=== PATIENT | female | born 1935 | race Two or more races ===

== ENCOUNTER 2017-06-29 20:44 | Emergency (ER) | payer MEDICAID ==
[~2017-06-29] VITALS: Ht 167.6 cm; Wt 63.5 kg
--- NOTE | 2017-06-29 21:04 | Emergency Room Report ---
History of Present Illness General Chief Complaint: Altered Level of Consciousness Source: Patient, Medical Record, EMS Present Illness HPI She was brought in for altered mental status. She's from a snf facility. She's recently discharged from [facility] for pneumonia. Initially presented to [facility] and was intubated for resp distress ( could not tell CHF or pneumonia). Treated empirically with cefepime and levofloxacin. Had stress test which was neg for ischemia but + for possible cardiomyopathy and pulm fibrosis. She had altered mentation during the prior admission. Etiology unclear. Accu-Chek in the field today was 124. The patient denies any pain. She says that she vomits sometimes appeared she is unclear about other questions. (In past it was recorded she only speaks Farsi.) H/O CHF, osteoporosis, COPD, HTN, dementia, blind in R eye Allergies: Coded Allergies: No Known Allergies (Unverified , 06/29/17) Patient History Limited by: language barrier, medical condition Past Medical History: see triage record, old chart reviewed Social History Narrative snf - has friends but no family members Now: No Reviewed Nursing Documentation: PMH: Agreed, PSxH: Agreed Nursing Documentation-PMH Past Medical History: No History, Except For Hx Cardiac Problems: Yes - CHF, CAD Hx COPD: No - PNA Review of Systems All Other Systems: limited Physical Exam Vital Signs Date Time Temp Pulse Resp B/P (MAP) Pulse Ox O2 Delivery O2 Flow Rate FiO2 06/29/17 20:38 98.4 76 18 129/90 98 Nasal Cannula 4.0 Sp02 EP Interpretation: reviewed, normal General Appearance: well appearing, no apparent distress, GCS 15, Chronically Ill Head: normocephalic Eyes: right eye other - enucleation ENT: moist mucus membranes Neck: supple Respiratory: no respiratory distress, no retraction, decreased breath sounds, crackles, rhonchi Cardiovascular #1: regular rate, rhythm Cardiovascular #2: 2+ radial (R) Gastrointestinal: normal inspection, normal bowel sounds, non tender, no mass, non-distended Musculoskeletal: back normal, gait/station normal, normal range of motion Neurologic: alert, responsive, sensory intact, motor weakness - bilat LE Psychiatric: depressed affect Skin: warm/dry, other - sallo, ecchymoses L upper arm Medical Decision Making Diagnostic Impression: Primary Impression: Bilateral pleural effusion Additional Impressions: Altered level of consciousness UTI (urinary tract infection) Qualified Codes: N30.00 - Acute cystitis without hematuria Dehydration CO2 retention ER Course Patient presents with altered level of consciousness a recent history of pneumonia. Differential includes stroke, electrolyte abnormality, infection from occult source, pneumonia partially treated amongst others. We need to exclude cardiac cause. EKG, chest x-ray, CT and labs are going to be obtained. The patient will receive gentle IV hydration. CT head shows no evidence of acute cortical stroke mass or edema no bleed. Periventricular small vessel ischemic changes and atrophy. Thickened falx which is likely related to calcification. EKG as well. Chest x-ray reveals significant bilateral pleural effusions and atelectasis versus infiltrate on the right-hand side. Labs are significant for normal white count although this is higher than a [facility]. Other labs significant for elevated carbon dioxide and BUN. These suggest chronic CO2 retention and also dehydration. She also has pyuria. Her mentation improved in the ED. It is uncertain what contributed to this. ( She is a complicated patient.) Based on the x-ray the patient was treated empirically with antibiotics again. Rancorous cough with improved mentation.. In addition to that she received breathing treatments here. She also received gentle hydration. Clinically she was improved but because the x-ray and labs she was deemed in needed to be admitted for observation. The patient was discussed with Dr. Sharma. The patient was transferred to [place] in improved condition but serious. Patient needs echo and continued antibiotics. A neurologic consultation is also needed. Laboratory Tests Test 06/29/17 21:10 06/29/17 21:33 06/29/17 22:12 White Blood Count 8.9 K/UL (4.8-10.8) Red Blood Count 3.42 M/UL (4.20-5.40) L Hemoglobin 11.3 G/DL (12.0-16.0) L Hematocrit 33.9 % (37.0-47.0) L Mean Corpuscular Volume 99 FL (80-99) Mean Corpuscular Hemoglobin 32.9 PG (27.0-31.0) H Mean Corpuscular Hemoglobin Concent 33.2 G/DL (32.0-36.0) Red Cell Distribution Width 12.8 % (11.6-14.8) Platelet Count 225 K/UL (150-450) Mean Platelet Volume 6.3 FL (6.5-10.1) L Neutrophils (%) (Auto) 70.0 % (45.0-75.0) Lymphocytes (%) (Auto) 17.8 % (20.0-45.0) L Monocytes (%) (Auto) 8.9 % (1.0-10.0) Eosinophils (%) (Auto) 2.6 % (0.0-3.0) Basophils (%) (Auto) 0.7 % (0.0-2.0) Prothrombin Time 9.8 SEC (9.30-11.50) Prothrombin Time INR 0.9 (0.9-1.1) PTT 22 SEC (23-33) L Sodium Level 144 mEQ/L (135-145) Potassium Level 4.1 mEQ/L (3.4-4.9) Chloride Level 99 mEQ/L (98-107) Carbon Dioxide Level 39 mEQ/L (20-30) H Anion Gap 6 (5-15) Blood Urea Nitrogen 35 mg/dL (7-23) H Creatinine 0.9 mg/dL (0.5-0.9) Estimate Glomerular Filtration Rate mL/min (>60) Glucose Level 109 mg/dL (74-106) H Lactic Acid Level 0.70 mmol/L (0.66-2.22) Calcium Level 8.6 mg/dL (8.6-10.2) Total Bilirubin 0.4 mg/dL (0.0-1.2) Aspartate Amino Transferase (AST) 52 U/L (5-40) H Alanine Aminotransferase (ALT) 51 U/L (3-33) H Alkaline Phosphatase 67 U/L (35-104) Total Creatine Kinase 25 U/L (26-140) L Troponin I < 0.30 ng/mL (<=0.30) Pro-B-Type Natriuretic Peptide 1282 pg/mL (0-450) H Total Protein 5.7 g/dL (6.6-8.7) L Albumin 2.8 g/dL (3.5-5.2) L Globulin 2.9 g/dL Albumin/Globulin Ratio 0.9 (1.0-2.7) L Salicylates Level < 1 mg/dL (10-30) L Acetaminophen Level < 10 ug/mL (10-30) L Serum Alcohol < 10 mg/dL Ammonia 59 umol/L (11-51) H Urine Color Pale yellow Urine Appearance Clear Urine pH 7 (4.5-8.0) Urine Specific [place] 1.010 (1.005-1.035) Urine Protein 2+ (NEGATIVE) H Urine Glucose (UA) Negative (NEGATIVE) Urine Ketones Negative (NEGATIVE) Urine Occult Blood 2+ (NEGATIVE) H Urine Nitrite Negative (NEGATIVE) Urine Bilirubin Negative (NEGATIVE) Urine Urobilinogen 1 MG/DL (0.0-1.0) H Urine Leukocyte Esterase 2+ (NEGATIVE) H Urine RBC 0-2 /HPF (0 - 2) Urine WBC 5-10 /HPF (0 - 2) H Urine Squamous Epithelial Cells Occasional /LPF Urine Bacteria Moderate /HPF (NONE) H Urine Opiates Screen Negative (NEGATIVE) Urine Barbiturates Screen Negative (NEGATIVE) Phencyclidine (PCP) Screen Negative (NEGATIVE) Urine Amphetamines Screen Negative (NEGATIVE) Urine Benzodiazepines Screen Negative (NEGATIVE) Urine Cocaine Screen Negative (NEGATIVE) Urine Marijuana (THC) Screen Negative (NEGATIVE) EKG Diagnostic Results Rate: normal Rhythm: NSR ST Segments: no acute changes - LAD, LBBB Rhythm Strip Diag. Results EP Interpretation: yes Rhythm: NSR, no PVC's, no ectopy Chest X-Ray Diagnostic Results Chest X-Ray Diagnostic Results : Chest X-Ray Ordered: Yes # of Views/Limited/Complete: 1 View Indication: Other EP Interpretation: Yes Interpretation: no pneumothorax, other - effusions, atelectasis R Impression: Other Electronically Signed by: Electronically signed by Nitish Paz MD Last Vital Signs Date Time Temp Pulse Resp B/P (MAP) Pulse Ox O2 Delivery O2 Flow Rate FiO2 06/30/17 04:25 99.7 72 19 121/74 100 Nasal Cannula 1.0 Status: improved Disposition: XFER SHT-TRM HOSP Condition: Serious - but stable for transfer Nitish Paz M.D. Jun 29, 2017 21:04
[2017-06-29 21:10] VITALS: BP 124/59
[2017-06-29 21:25] LABS: BASOPHILS % (AUTO) 0.7 % (0.0-2.0); EOSINOPHILS % (AUTO) 2.6 % (0.0-3.0); LYMPHOCYTES % (AUTO) 17.8 % (20.0-45.0); MEAN CORPUSCULAR HEMOGLOBIN 32.9 PG (27.0-31.0); MEAN CORPUSCULAR HGB CONC 33.2 G/DL (32.0-36.0); MEAN CORPUSCULAR VOLUME 99 FL (80-99); MEAN PLATELET VOLUME 6.3 FL (6.5-10.1); MONOCYTES % (AUTO) 8.9 % (1.0-10.0); PLATELET COUNT 225 K/UL (150-450); RED BLOOD COUNT 3.42 M/UL (4.20-5.40); RED CELL DISTRIBUTION WIDTH 12.8 % (11.6-14.8); WHITE BLOOD COUNT 8.9 K/UL (4.8-10.8)
[2017-06-29 21:37] LABS: INR 0.9 (0.9-1.1); PROTHROMBIN TIME 9.8 SEC (9.30-11.50)
[2017-06-29 21:41] LABS: TROPONIN I < 0.30 ng/mL (<=0.30)
[2017-06-29 21:44] LABS: ACETAMINOPHEN < 10 ug/mL (10-30); ALANINE AMINOTRANSFERASE 51 U/L (3-33); ALBUMIN/GLOBULIN RATIO 0.9 (1.0-2.7); ALCOHOL < 10 mg/dL; ANION GAP 6 (5-15); ASPARTATE AMINO TRANSFERASE 52 U/L (5-40); CALCIUM 8.6 mg/dL (8.6-10.2); CARBON DIOXIDE 39 mEQ/L (20-30); CHLORIDE 99 mEQ/L (98-107); CREATININE 0.9 mg/dL (0.5-0.9); HEMOLYSIS 23; POTASSIUM 4.1 mEQ/L (3.4-4.9); SODIUM 144 mEQ/L (135-145); TOTAL PROTEIN 5.7 g/dL (6.6-8.7)
[2017-06-29] MEDS ORDERED: cefTRIAXone 1 GM in NS 55 ML IVPB ONE (21:45)
[2017-06-29 22:38] LABS: APPEARANCE,URINE CLEAR; KETONES,URINE NEGATIVE (NEGATIVE); LEUKOCYTE ESTERASE ,URINE 2+ (NEGATIVE); NITRITE,URINE NEGATIVE (NEGATIVE); PH,URINE 7 (4.5-8.0); PROTEIN,URINE 2+ (NEGATIVE); UROBILINOGEN,URINE 1 MG/DL (0.0-1.0)
[2017-06-29 22:43] VITALS: BP 125/59
[2017-06-29 22:53] LABS: RBC,URINE 0-2 /HPF (0 - 2)
[2017-06-29 22:54] LABS: BACTERIA,URINE MODERATE /HPF; SQUAMOUS EPITHELIAL CELL,UR OCCASIONAL /LPF (NONE/OCC)
[2017-06-29] MEDS ORDERED: FUROSEMIDE40 MG ORAL (23:44)
[2017-06-29] MEDS ORDERED: BRIMONIDINE TART5 ML LEFT EYE (23:44)
[2017-06-29] MEDS ORDERED: LISINOPRIL5 MG ORAL (23:44)
[2017-06-29] MEDS ORDERED: ATORVASTATIN CA10 MG ORAL (23:44)
[2017-06-29] MEDS ORDERED: ASPIR 8181 MG ORAL (23:44)
[2017-06-29] MEDS ORDERED: FLUTICASONE PRO16 G1 NASAL (23:44)
[2017-06-29] MEDS ORDERED: CARVEDILOL3.125 MG ORAL (23:44)
[2017-06-29] MEDS ORDERED: TRUSOPT10 ML BOTH EYES (23:44)
[2017-06-29] MEDS ORDERED: XALATAN2.5 ML LEFT EYE (23:44)
[2017-06-30 01:27] VITALS: BP 103/65
[2017-06-30] MEDS ORDERED: Albuterol ud Inhalation HHN ONE (03:00)
[2017-06-30] MEDS ORDERED: Ipratropium 0.02% Inh Soln 2.5ml UD HHN ONE (03:00)
[2017-06-30 04:25] VITALS: BP_SYST 103; BP_SYST 121; BP_DIAS 65; BP_DIAS 74
--- NOTE | 2017-06-30 09:39 | Diagnostic Imaging Report ---
Indication: ALOC altered level of consciousness, altered middle status Technique: spiral acquisitions obtained through the brain. Angled axial and coronal 5 x 5 mm slices were reconstructed. No IV contrast utilized. Radiation dose was minimized using automated exposure control Total dose length product 1238 mGycm. CTDIvol(s) 70 mGy Comparison: none FINDINGS: No acute hemorrhage or edema. No mass effect or midline shift. There is age-related enlargement of the ventricles and extra axial CSF spaces. There is periventricular deep white matter ischemic change. Normal reyes-white differentiation. There is evidence of prior ocular surgery on the right.. Visualized sinuses are unremarkable. Intact calvarium. The mastoids on the left are underpneumatized IMPRESSION: Chronic and age-related changes. Negative for acute intracranial bleed or mass effect This agrees with the preliminary interpretation provided overnight by [facility] telerad[facility] service. The CT scanner at [facility] is accredited by the [employer] and the scans are performed using protocols designed to limit radiation exposure to as low as reasonably achievable to attain images of sufficient resolution adequate for diagnostic evaluation
--- NOTE | 2017-06-30 11:14 | Diagnostic Imaging Report ---
Indication: Shortness of breath Technique: One view of the chest Comparison: none Findings: Heart is enlarged. There are bilateral pleural effusions demonstrated. There is bilateral basilar atelectasis area there is mild central bronchial wall thickening, but no definite interstitial congestion Impression: Cardiomegaly Bilateral pleural effusions Resultant bilateral basilar compressive atelectasis
--- NOTE | 2017-06-30 14:43 | Cardiology Report ---
APPROVED REPORT EKG Measurement Heart [id number] Normal sinus rhythm Left axis deviation Left bundle branch block Abnormal ECG
== END 2017-06-30 04:26 | disposition short-term general hospital (02) ==
LOC: EDBD 20:44 → EMR 21:10
DX: J90 Pleural effusion, not elsewhere classified (principal); R41.82 Altered mental status, unspecified; N39.0 Urinary tract infection, site not specified; E87.2 Acidosis; E86.0 Dehydration; Z87.01 Personal history of pneumonia (recurrent); R23.3 Spontaneous ecchymoses; I25.10 Atherosclerotic heart disease of native coronary artery without angina pectoris; I50.9 Heart failure, unspecified; I10 Essential (primary) hypertension; F03.90 Unspecified dementia, unspecified severity, without behavioral disturbance, psychotic disturbance, mood disturbance, and anxiety; H54.41 Blindness, right eye, normal vision left eye; J44.9 Chronic obstructive pulmonary disease, unspecified
CPT/HCPCS: 36415; 70450; 71010; 80053; 80300; 80329; 81003; 82140; 82550; 83605; 83880; 84484; 85025; 85610; 85730; 87040; 87081; 87086; 87181; 93005; 94640; 94664; 96361; 96365; 96375; 99285; J0696; J1956